=== PATIENT | female | born 1950 ===

== ENCOUNTER 2021-09-22 06:29 | Day surgery (SDC) | payer OTHER ==
[~2021-09-22 06:29] MED LIST: ANASTROZOLE1 MG PO
== END 2021-09-22 19:00 | disposition home or self-care (01) ==
LOC: CIR.AMB 06:29
PROVIDERS: ATTEND Orthopaedic Surgery Hand Surgery
DX: S42.252A Displaced fracture of greater tuberosity of left humerus, initial encounter for closed fracture (principal); Z20.822 Contact with and (suspected) exposure to COVID-19
CPT/HCPCS: 23615; C1776